=== PATIENT | male | born 1935 | race African-American/Black ===

== ENCOUNTER 2017-07-15 10:13 | Emergency (ER) | payer MEDICAID, MEDICARE, OTHER ==
[~2017-07-15] VITALS: Ht 152.4 cm; Wt 62.6 kg
[~2017-07-15 10:13] MED LIST: ASPIR-LOW81 MG ORAL; ATARAX25 MG ORAL; CALCIPOTRIENE60 G1 TP; FOLIC ACID1 MG ORAL; HUMALOG100 UNIT/4 SUBQ; JANUVIA100 MG ORAL; LANTUS SOL100 UNIT/1 SUBQ; LEVAQUIN500 MG ORAL; LISINOPRIL2.5 MG ORAL; METFORMIN HCL500 M1 ORAL; PEDIADERM TA 0115 GM TP; SIMVASTATIN20 MG ORAL; TUMS500 MG ORAL
[2017-07-15] MEDS ORDERED: Ketorolac 30mg Inj IV ONE (11:00)
[2017-07-15 11:36] LABS: BASOPHILS % (AUTO) 1.1 % (0.0-2.0); EOSINOPHILS % (AUTO) 3.4 % (0.0-3.0); HEMATOCRIT 37.7 % (42.0-52.0); HEMOGLOBIN 11.8 G/DL (14.2-18.0); LYMPHOCYTES % (AUTO) 21.4 % (20.0-45.0); MEAN CORPUSCULAR VOLUME 86 FL (80-99); MONOCYTES % (AUTO) 7.4 % (1.0-10.0); NEUTROPHILS % (AUTO) 66.8 % (45.0-75.0); PLATELET COUNT 281 K/UL (150-450); RED BLOOD COUNT 4.39 M/UL (4.70-6.10); RED CELL DISTRIBUTION WIDTH 12.8 % (11.6-14.8); WHITE BLOOD COUNT 7.6 K/UL (4.8-10.8)
[2017-07-15 11:36] LABS: APPEARANCE,URINE CLEAR; BILIRUBIN, URINE NEGATIVE (NEGATIVE); COLOR,URINE PALE YELLOW; GLUCOSE, URINE (UA) NEGATIVE (NEGATIVE); KETONES,URINE NEGATIVE (NEGATIVE); LEUKOCYTE ESTERASE ,URINE NEGATIVE (NEGATIVE); NITRITE,URINE NEGATIVE (NEGATIVE); PH,URINE 5 (4.5-8.0); PROTEIN,URINE 2+ (NEGATIVE); UROBILINOGEN,URINE NORMAL MG/DL (0.0-1.0)
[2017-07-15 11:38] VITALS: BP 163/80
[2017-07-15 11:48] LABS: ANION GAP 8 mmol/L (5-15); BLOOD UREA NITROGEN 23 mg/dL (7-18); CARBON DIOXIDE 24 MMOL/L (21-32); CHLORIDE 106 MMOL/L (98-107); CREATININE 1.1 MG/DL (0.55-1.30); POTASSIUM 4.7 MMOL/L (3.5-5.1); SODIUM 138 MMOL/L (136-145)
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
[2017-07-15 12:00] LABS: ALANINE AMINOTRANSFERASE 40 U/L (12-78); ALBUMIN/GLOBULIN RATIO 0.6 (1.0-2.7); ALKALINE PHOSPHATASE 130 U/L (46-116); ASPARTATE AMINO TRANSFERASE 33 U/L (15-37); BILIRUBIN,TOTAL 0.2 MG/DL (0.2-1.0); CREATINE KINASE 228 U/L (26-308)
--- NOTE | 2017-07-15 12:04 | Diagnostic Imaging Report ---
Indication: Pain Comparison: None Findings: Two views of the left tibia and fibula were obtained. No acute fracture, malalignment, or periosteal reaction are identified. Soft tissues are unremarkable. Impression: No acute injury.
[2017-07-15 12:47] VITALS: BP 158/73
[2017-07-15] MEDS ORDERED: Bactrim-DS 1 tab ORAL ONE (14:00)
[2017-07-15 14:06] VITALS: BP 165/87
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
[2017-07-15] MEDS ORDERED: TRAMADOL HCL50 MG ORAL (14:28)
[2017-07-15] MEDS ORDERED: TYLENOL325 MG ORAL (14:28)
[2017-07-15] MEDS ORDERED: BACTRIM DS TAB1 EAC1 ORAL (14:28)
[2017-07-15 14:42] VITALS: BP 165/87
== END 2017-07-15 15:00 | disposition home or self-care (01) ==
LOC: EMR 10:56
DX: S81.802S Unspecified open wound, left lower leg, sequela (principal); I10 Essential (primary) hypertension; E11.9 Type 2 diabetes mellitus without complications; Z79.84 Long term (current) use of oral hypoglycemic drugs; Z85.46 Personal history of malignant neoplasm of prostate; R06.00 Dyspnea, unspecified; I51.7 Cardiomegaly; Z87.828 Personal history of other (healed) physical injury and trauma; M79.605 Pain in left leg; W45.8XXS Other foreign body or object entering through skin, sequela
CPT/HCPCS: 36415; 71045; 73590; 80053; 81003; 82550; 83605; 83880; 84484; 85025; 87070; 87181; 87205; 93005; 96374; 99284; J1885

== ENCOUNTER 2017-07-17 16:16 | Emergency (ER) | payer MEDICARE ==
[~2017-07-17] VITALS: Ht 152.4 cm; Wt 62.6 kg
[~2017-07-17 16:16] MED LIST changes: +BACTRIM DS TAB1 EAC1 ORAL; +TRAMADOL HCL50 MG ORAL; +TYLENOL325 MG ORAL
[2017-07-17 16:34] VITALS: BP 138/64
--- NOTE | 2017-07-17 16:41 | Emergency Room Report ---
History of Present Illness General Chief Complaint: Wound Recheck/Suture Removal Source: Patient Present Illness HPI 81-year-old male patient presents ER requesting wound check for wound on his left lower leg. Patient reports he was seen in ER 2 days ago and given antibiotic medications. Patient reports that he has been taking medications since that time. Patient requesting dressing change. Patient reports he was instructed to followup with ER if unable to be seen by Home Health wound care. Patient reports did not contact the wound care service. Patient reports injury occurred from fall 2 weeks ago. Patient denies fever, chest pain, shortness of breath. Patient denies vomiting, diarrhea. Allergies: Coded Allergies: No Known Allergies (Unverified , 06/18/13) Patient History Past Medical History: see triage record Reviewed Nursing Documentation: PMH: Agreed; PSxH: Agreed Nursing Documentation-PMH Hx Cardiac Problems: Yes Hx Hypertension: Yes Hx Diabetes: Yes Hx Cancer: Yes - Prostate cancer Review of Systems All Other Systems: negative except mentioned in HPI Physical Exam Vital Signs Date Time Temp Pulse Resp B/P (MAP) Pulse Ox O2 Delivery O2 Flow Rate FiO2 07/17/17 16:24 97.8 76 18 132/64 97 Room Air 97.9 Sp02 EP Interpretation: reviewed, normal General Appearance: well appearing, no apparent distress, alert, GCS 15, non- toxic Head: normocephalic, atraumatic Respiratory: lungs clear, normal breath sounds, no rhonchi, no respiratory distress, no accessory muscle use, no wheezing, speaking full sentences Cardiovascular #1: regular rate, rhythm, no edema Musculoskeletal: back normal, normal range of motion Neurologic: alert, oriented x3, responsive, motor strength/tone normal, sensory intact Psychiatric: mood/affect normal Skin: laceration - V shaped laceration on left anterior tibia, adipose tissue visible, no active drainage, TTP Medical Decision Making PA Attestation Dr. Ferris is my supervising Physician whom patient management has been discussed with. Diagnostic Impression: Primary Impression: Encounter for wound re-check ER Course Pt. presents to the ED requesting wound check of lower leg. Ddx considered but are not limited to cellulitis, abscess, wound check, folliculitis. Vital signs: are WNL, pt. is afebrile Ordered Bacitrain. ER COURSE: Wound appears to be healing well, consistent with previous visits to ER. No surrounding signs of infection. Wound okay for continued outpatient treatment. Does not require treatment in ER. Bacitracin applied to wound. Wound redressed with Xeroform and sterile gauze. Provided patient with contact information for home wound care. instructed patient to contact [facility] for wound treatment. Attempted to contact [facility] service, office was closed for the day and was directed to answering service. Was informed patient could not be seen at this time, could not provide further information regarding patient. Discharged patient to follow-up with primary care provider at scheduled appointment this week and discuss referral to automotive glass specialist. Return to ER if unable to be seen by provider for wound check. DISCHARGE: Continue take medications as previously prescribed. Patient instructed to continue with medications per initial ER provider instructions. At this time pt. is stable for d/c to home. Patient resting comfortably, in no acute distress, nontoxic appearing, talking without difficulty. Will provide printed patient care instructions and any necessary prescriptions. Care plan and follow up instructions have been discussed with the patient prior to discharge. Patient instructed to follow-up with primary care provider for further treatment and referral. Patient questions asked and answered. ER precautions given. Patient instructed to return to ER immediately for any new or worsening of symptoms including but not limited to fever, worsening of pain symptoms. - Please note that this Emergency Department Report was dictated using [employer] trimmer technology software, occasionally this can lead to erroneous entry secondary to interpretation by the dictation equipment. Last Vital Signs Date Time Temp Pulse Resp B/P (MAP) Pulse Ox O2 Delivery O2 Flow Rate FiO2 07/17/17 16:24 97.8 76 18 132/64 97 Room Air 97.9 Disposition: HOME, SELF-CARE Condition: Stable Patient Instructions: Wound Check Additional Instructions: Patient instructed to follow-up with primary care provider at scheduled appointment for wound check and referral to wound care. Continue to take medications as directed. Keep wound clean and dry. Patient questions asked and answered. ER precautions given, patient instructed to return to ER immediately for any new or worsening of symptoms. [facility] Ryan Cobb Jul 17, 2017 16:41
[2017-07-17] MEDS ORDERED: Bacitracin Oint UD TOPIC ONE (17:30)
[2017-07-17 17:46] VITALS: BP 138/64
== END 2017-07-17 17:50 | disposition home or self-care (01) ==
LOC: EMR 16:45
DX: S81.812D Laceration without foreign body, left lower leg, subsequent encounter (principal); X58.XXXD Exposure to other specified factors, subsequent encounter; Z48.01 Encounter for change or removal of surgical wound dressing; E11.9 Type 2 diabetes mellitus without complications; I10 Essential (primary) hypertension; Z85.46 Personal history of malignant neoplasm of prostate
CPT/HCPCS: 99283